=== PATIENT | female | born 1970 | race Caucasian/White ===

== ENCOUNTER 2020-07-03 15:00 | Outpatient (RCR) | payer OTHER | END 2020-07-13 | LOC: PT 15:00 | PROVIDERS: ATTEND Specialist | DX: S16.1XXA Strain of muscle, fascia and tendon at neck level, initial encounter (principal) | CPT/HCPCS: 97139 ==

== ENCOUNTER 2020-07-25 14:00 | Outpatient (RCR) | payer OTHER | END 2020-08-13 | LOC: PT 14:00 | PROVIDERS: ATTEND Specialist | DX: S16.1XXA Strain of muscle, fascia and tendon at neck level, initial encounter (principal); M62.81 Muscle weakness (generalized); M53.82 Other specified dorsopathies, cervical region | CPT/HCPCS: 97139 ==